=== PATIENT | female | born 1935 | race Caucasian/White ===

== ENCOUNTER 2016-08-24 15:14 | Outpatient (CLI) | payer MEDICARE ==
[2016-08-24 16:09] LABS: #Basophils 0.1 thou/uL (0.0-0.2); #Eosinphils 0.4 thou/uL (0.0-0.7); #Monocytes 0.7 thou/uL (0.11-0.59); #Neutrophils 4.5 thou/uL (1.40-6.50); %Basophils 1.2 % (0.0-1.0); %Eosinophils 5.4 % (0.0-10.0); %Lymphocytes 25.9 % (21.0-51.0); %Monocytes 9.3 % (0.0-10.0); Hematocrit 45.3 % (36.0-47.0); Mean Platelet Volume 5.3 fL (7.4-10.4); Red Blood Cell (RBC) Count 4.92 mill/uL (4.20-5.40); White Blood Cell (WBC) Count 7.7 thou/uL (4.8-10.8)
[2016-08-24 16:36] LABS: ALT (SGPT) 14 U/L (0-55); AST (SGOT) 20 U/L (5-34); Alkaline Phosphatase 88 U/L (40-150); Anion Gap 17 mmol/L (10-20); BUN (Urea Nitrogen) 31 mg/dL (9.8-20.1); Bilirubin, Direct 0.2 mg/dL (0.1-0.3); Bilirubin, Total 0.6 mg/dL (0.2-1.2); Calc. Creatinine Clearance 0 mL/min (70-130); Calcium 9.6 mg/dL (7.8-10.44); Carbon Dioxide 22 mmol/L (23-31); Chloride 105 mmol/L (98-107); Estimated GFR-MDRD 40; LDL Cholesterol, Calculated 91 mg/dL; Protein, Total 6.8 g/dL (5.8-8.1)
[2016-08-24 16:37] LABS: Hemoglobin A1c 5.9 % (4.0-6.0)
== END 2016-08-24 15:15 | disposition home or self-care (01) ==
LOC: NAVSJIPCSP 15:14
PROVIDERS: ATTEND Family Medicine
DX: I10 Essential (primary) hypertension (principal); E11.9 Type 2 diabetes mellitus without complications; E78.00 Pure hypercholesterolemia, unspecified; E03.9 Hypothyroidism, unspecified; R00.0 Tachycardia, unspecified; E27.9 Disorder of adrenal gland, unspecified; Z79.899 Other long term (current) drug therapy; K64.9 Unspecified hemorrhoids; J30.9 Allergic rhinitis, unspecified
CPT/HCPCS: 36415; 80048; 80061; 80076; 83036; 84443; 85025

== ENCOUNTER 2016-12-29 09:47 | Outpatient (CLI) | payer MEDICARE ==
[2016-12-29 12:53] LABS: #Basophils 0.1 thou/uL (0.0-0.2); #Eosinphils 0.5 thou/uL (0.0-0.7); #Lymphocytes 2.1 thou/uL (1.20-3.40); #Monocytes 0.7 thou/uL (0.11-0.59); #Neutrophils 6.2 thou/uL (1.40-6.50); %Basophils 0.9 % (0.0-1.0); %Eosinophils 5.2 % (0.0-10.0); %Lymphocytes 22.2 % (21.0-51.0); %Monocytes 7.6 % (0.0-10.0); %Neutrophils 64.1 % (42.0-75.0); Hemoglobin 13.8 g/dL (12.0-16.0); Mean Corpuscular HGB CONC 31.4 g/dL (32.0-36.0); Mean Corpuscular Hemoglobin 27.7 pg (27.0-31.0); Mean Corpuscular Volume 88.2 fl (81.0-99.0); Mean Platelet Volume 5.6 fL (7.4-10.4); Platelet Count 329 thou/uL (130-400); RBC Distribution Width 13.7 % (11.5-14.5); Red Blood Cell (RBC) Count 4.96 mill/uL (4.20-5.40); White Blood Cell (WBC) Count 9.6 thou/uL (4.8-10.8)
[2016-12-29 13:21] LABS: ALT (SGPT) 13 U/L (8-55); AST (SGOT) 17 U/L (5-34); Alkaline Phosphatase 85 U/L (40-150); Anion Gap 17 mmol/L (10-20); BUN (Urea Nitrogen) 24 mg/dL (9.8-20.1); Bilirubin, Direct 0.2 mg/dL (0.1-0.3); Bilirubin, Total 0.7 mg/dL (0.2-1.2); Calc. Creatinine Clearance 0 mL/min (70-130); Calcium 9.6 mg/dL (7.8-10.44); Carbon Dioxide 23 mmol/L (23-31); Cardiac Risk 3.6 (Less than 4.5); Chloride 104 mmol/L (98-107); Cholesterol 163 mg/dl (< 200 Desired); Estimated GFR-MDRD 40; Glucose 100 mg/dL (83-110); HDL Cholesterol 45 mg/dL (>60 Neg Risk); LDL Cholesterol, Calculated 84 mg/dL; Potassium 4.6 mmol/L (3.5-5.1); Protein, Total 7.3 g/dL (6.0-8.3); Sodium 139 mmol/L (136-145); Triglycerides 169 mg/dL (Less than 150)
[2016-12-29 14:15] LABS: Hemoglobin A1c 6.1 % (4.0-6.0)
== END 2016-12-29 09:48 | disposition home or self-care (01) ==
LOC: NAVSJIPCSP 09:47
PROVIDERS: ATTEND Family Medicine
DX: I10 Essential (primary) hypertension (principal); E11.9 Type 2 diabetes mellitus without complications; M17.9 Osteoarthritis of knee, unspecified; E03.9 Hypothyroidism, unspecified; E78.00 Pure hypercholesterolemia, unspecified; R00.0 Tachycardia, unspecified; E27.9 Disorder of adrenal gland, unspecified; K64.9 Unspecified hemorrhoids; J30.9 Allergic rhinitis, unspecified; Z79.899 Other long term (current) drug therapy
CPT/HCPCS: 36415; 80048; 80061; 80076; 83036; 84443; 85025

== ENCOUNTER 2017-05-16 08:57 | Outpatient (CLI) | payer MEDICARE ==
[2017-05-16 12:29] LABS: #Basophils 0.1 thou/uL (0.0-0.2); #Eosinphils 0.6 thou/uL (0.0-0.7); #Lymphocytes 2.1 thou/uL (1.20-3.40); #Monocytes 0.7 thou/uL (0.11-0.59); #Neutrophils 5.5 thou/uL (1.40-6.50); %Basophils 1.2 % (0.0-1.0); %Eosinophils 6.9 % (0.0-10.0); %Lymphocytes 22.9 % (21.0-51.0); %Monocytes 7.9 % (0.0-10.0); %Neutrophils 61.1 % (42.0-75.0); Mean Corpuscular HGB CONC 31.2 g/dL (32.0-36.0); Mean Corpuscular Hemoglobin 27.7 pg (27.0-31.0); Mean Platelet Volume 5.5 fL (7.4-10.4); Platelet Count 346 thou/uL (130-400); RBC Distribution Width 13.4 % (11.5-14.5); Red Blood Cell (RBC) Count 5.05 mill/uL (4.20-5.40); White Blood Cell (WBC) Count 8.9 thou/uL (4.8-10.8)
[2017-05-16 12:53] LABS: ALT (SGPT) 16 U/L (8-55); AST (SGOT) 17 U/L (5-34); Albumin 4.2 g/dL (3.4-4.8); Alkaline Phosphatase 90 U/L (40-150); Anion Gap 19 mmol/L (10-20); BUN (Urea Nitrogen) 31 mg/dL (9.8-20.1); Bilirubin, Direct 0.2 mg/dL (0.1-0.3); Bilirubin, Total 0.5 mg/dL (0.2-1.2); Calc. Creatinine Clearance 0 mL/min (70-130); Calcium 9.8 mg/dL (7.8-10.44); Carbon Dioxide 20 mmol/L (23-31); Cardiac Risk 3.5 (Less than 4.5); Chloride 106 mmol/L (98-107); Cholesterol 167 mg/dl (< 200 Desired); Estimated GFR-MDRD 39; Glucose 108 mg/dL (83-110); HDL Cholesterol 48 mg/dL (>60 Neg Risk); LDL Cholesterol, Calculated 90 mg/dL; Potassium 4.2 mmol/L (3.5-5.1); Protein, Total 7.1 g/dL (6.0-8.3); Sodium 141 mmol/L (136-145); Triglycerides 146 mg/dL (Less than 150)
== END 2017-05-16 08:58 | disposition home or self-care (01) ==
LOC: NAVSJIPCSP 08:57
PROVIDERS: ATTEND Family Medicine
DX: E11.9 Type 2 diabetes mellitus without complications (principal); E03.9 Hypothyroidism, unspecified; I10 Essential (primary) hypertension; M17.9 Osteoarthritis of knee, unspecified; R00.0 Tachycardia, unspecified; E27.9 Disorder of adrenal gland, unspecified; K64.9 Unspecified hemorrhoids; J30.9 Allergic rhinitis, unspecified; Z79.899 Other long term (current) drug therapy
CPT/HCPCS: 36415; 80048; 80061; 80076; 83036; 84443; 85025

== ENCOUNTER 2018-10-02 06:36 | Emergency (ER) | payer MEDICARE | END 2018-10-02 07:26 | disposition home or self-care (01) | LOC: NAV ERS 06:36 | DX: R09.81 Nasal congestion (principal); G47.00 Insomnia, unspecified; I10 Essential (primary) hypertension; E78.5 Hyperlipidemia, unspecified; E11.9 Type 2 diabetes mellitus without complications; M19.90 Unspecified osteoarthritis, unspecified site; Z79.899 Other long term (current) drug therapy; Z79.82 Long term (current) use of aspirin; Z79.84 Long term (current) use of oral hypoglycemic drugs | CPT/HCPCS: 93005 ==

== ENCOUNTER 2018-11-22 08:44 | Emergency (ER) | payer MEDICARE ==
[2018-11-22] MEDS ORDERED: Acetaminophen 500 MG TAB ONE (09:13)
[2018-11-22] MEDS ORDERED: HYDROcodone/Acetaminophen 5/325 mg Tablet ONE (09:13)
[2018-11-22] MEDS ORDERED: Dexamethasone 20 MG/5 ML VIAL ONE (09:14)
--- NOTE | 2018-11-22 10:05 | RAD ---
RADIOGRAPH RIGHT HIP TWO VIEWS: History: 83-year-old female with right hip pain. FINDINGS: Femoral head contour is maintained. No subcapital osteophytes. Bony hypertrophy of the lateral aspect of acetabulum. No high grade joint space narrowing. No dislocation. No acute fracture identified. At herosclerotic calcification of external iliac artery, superficial femoral artery, and profunda femora l artery. IMPRESSION: 1. No fracture. 2. Osteoarthrosis is mild. POS: [facility]
--- NOTE | 2018-11-22 10:53 | RAD ---
RADIOGRAPH RIGHT KNEE 4 VIEWS: Date: 11/22/18 Time: 0941 hours HISTORY: 83-year-old female with right knee pain. COMPARISON: 06/03/13. FINDINGS: No evidence of acute fracture or dislocation. As in the previous case, there is a suprapatellar region of increased density, but this is larger on the current study. This could either be a moderate sized joint effusion or hemarthrosis. Within this, there is a new finding of an irregularly shaped 2 x 1 cm calcification. 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 There has been interval wor sening of osteophytosis at the medial and lateral compartment since the previous study. At the medial compartment, there is articular surface irregularity and moderate joint space narrowing , with moderate osteophytosis. This osteophytosis has become worse. In the lateral compartment, the previously maintained joint space has become mildly narrowed, and the re is now mild to moderate osteophytosis, which is greater than previously. 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 Osteophytosis at the patellofemoral compartment has also progressed. IMPRESSION: 1. Interval progression of moderate to severe osteoarthrosis since 2013. 2. Suprapatellar joint effusion versus hemarthrosis. 3. Calcification within the suprapatellar region of uncertain etiology. 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 POS: [facility]
== END 2018-11-22 10:28 | disposition home or self-care (01) ==
LOC: NAV ERS 08:44
DX: M17.11 Unilateral primary osteoarthritis, right knee (principal); E11.9 Type 2 diabetes mellitus without complications; E78.5 Hyperlipidemia, unspecified; I10 Essential (primary) hypertension; Z79.899 Other long term (current) drug therapy; Z79.84 Long term (current) use of oral hypoglycemic drugs; Z79.82 Long term (current) use of aspirin
CPT/HCPCS: 96372; J1100

== ENCOUNTER 2018-12-04 07:53 | Emergency (ER) | payer MEDICARE ==
[2018-12-04] MEDS ORDERED: Ketorolac Tromethamine 30 MG/ML VIAL ONE (08:42)
== END 2018-12-04 08:55 | disposition home or self-care (01) ==
LOC: NAV ERS 07:53
DX: M54.41 Lumbago with sciatica, right side (principal); E78.5 Hyperlipidemia, unspecified; I10 Essential (primary) hypertension; M19.90 Unspecified osteoarthritis, unspecified site; E11.9 Type 2 diabetes mellitus without complications; Z79.891 Long term (current) use of opiate analgesic; Z79.82 Long term (current) use of aspirin; Z79.84 Long term (current) use of oral hypoglycemic drugs; W01.0XXA Fall on same level from slipping, tripping and stumbling without subsequent striking against object, initial encounter
CPT/HCPCS: 96372; J1885

== ENCOUNTER 2018-12-06 08:45 | Outpatient (CLI) | payer MEDICARE ==
--- NOTE | 2018-12-06 09:26 | CT ---
CT pelvis noncontrast HISTORY: Fall. Pelvic injury. Hip pain. FINDINGS: No acute fracture or dislocation are apparent. There are prominent degenerative changes of the lower lumbar spine. Posterior disc bulge and prominent circumferential degenerative changes with severe stenosis of the central canal. Diverticula arise from the partially visualized colon with out adjacent formation. Prominent calcification throughout the arterial structures. IMPRESSION: No acute osseous anomalies of the pelvis are demonstrated. Severe degenerative changes lower lumbar spine. Atherosclerosis. Diverticulosis.
== END 2018-12-06 08:46 | disposition home or self-care (01) ==
LOC: NAV CT 08:45
PROVIDERS: ATTEND Family Medicine
DX: R10.2 Pelvic and perineal pain (principal); M47.816 Spondylosis without myelopathy or radiculopathy, lumbar region; I70.90 Unspecified atherosclerosis; K57.30 Diverticulosis of large intestine without perforation or abscess without bleeding
CPT/HCPCS: 72192

== ENCOUNTER 2018-12-08 11:11 | Outpatient (CLI) | payer MEDICARE ==
--- NOTE | 2018-12-08 12:44 | RAD ---
EXAM: XR Shoulder Rt 3 View STANDARD PROVIDED CLINICAL HISTORY: Right shoulder pain after fall. COMPARISON: None available. FINDINGS: There is right acromioclavicular joint osteoarthritis. No fracture or dislocation is seen. There is s uggestion of a calcific density seen at the superior aspect right glenohumeral joint which could be related to calcific peritendinitis. There is questionable calcifications inferior to level the coraco id process, and small intra-articular loose bodies in the region of the subcoracoid bursa is a possibility. No fracture or dislocation is seen. IMPRESSION: 1. No acute osseous abnormalities. 2. Question of intra-articular loose bodies in the region of the subcoracoid bursa. 3. Right acromioclavicular joint osteoarthritis.
== END 2018-12-08 11:12 | disposition home or self-care (01) ==
LOC: NAV RAD 11:11
PROVIDERS: ATTEND Physical Medicine & Rehabilitation
DX: M25.511 Pain in right shoulder (principal); M19.011 Primary osteoarthritis, right shoulder

== ENCOUNTER 2021-03-30 16:00 | Emergency (ER) | payer MEDICARE | END 2021-03-30 17:08 | disposition home or self-care (01) | LOC: NAV ERS 16:00 | DX: I10 Essential (primary) hypertension (principal); E11.9 Type 2 diabetes mellitus without complications; E78.5 Hyperlipidemia, unspecified; E78.00 Pure hypercholesterolemia, unspecified; M19.90 Unspecified osteoarthritis, unspecified site; Z79.84 Long term (current) use of oral hypoglycemic drugs; Z79.899 Other long term (current) drug therapy | CPT/HCPCS: 99283 ==

== ENCOUNTER 2021-07-07 19:08 | Emergency (ER) | payer MEDICARE ==
[2021-07-07 20:15] LABS: #Basophils 0.1 thou/uL (0.0-0.2); #Eosinphils 0.5 thou/uL (0.0-0.7); #Monocytes 0.8 thou/uL (0.11-0.59); #Neutrophils 7.2 thou/uL (1.40-6.50); %Basophils 1.2 % (0.0-1.0); %Eosinophils 4.8 % (0.0-10.0); %Lymphocytes 18.6 % (21.0-51.0); %Monocytes 7.5 % (0.0-10.0); Mean Corpuscular HGB CONC 30.8 g/dL (32.0-36.0); Mean Corpuscular Hemoglobin 27.9 pg (27.0-31.0); Mean Corpuscular Volume 90.5 fL (78.0-98.0); Platelet Count 330 thou/uL (130-400); RBC Distribution Width 14.2 % (11.5-14.5); Red Blood Cell (RBC) Count 4.67 mill/uL (4.20-5.40); White Blood Cell (WBC) Count 10.5 thou/uL (4.8-10.8)
[2021-07-07] MEDS ORDERED: Sodium Chloride 0.9% 1,000 ML ONE (20:23)
[2021-07-07 20:27] LABS: ALT (SGPT) 15 U/L (8-55); AST (SGOT) 22 U/L (5-34); Albumin 3.7 g/dL (3.4-4.8); Alkaline Phosphatase 84 U/L (40-110); Anion Gap 15 mmol/L (10-20); BUN (Urea Nitrogen) 29 mg/dL (9.8-20.1); Bilirubin, Total 0.4 mg/dL (0.2-1.2); Calc. Creatinine Clearance 0 mL/min (70-130); Calcium 9.7 mg/dL (7.8-10.44); Carbon Dioxide 21 mmol/L (23-31); Chloride 102 mmol/L (98-107); Globulin 3.4 g/dL (2.4-3.5); Glucose 122 mg/dL (83-110); Potassium 4.2 mmol/L (3.5-5.1); Protein, Total 7.1 g/dL (5.8-8.1); Sodium 134 mmol/L (136-145)
[2021-07-07 20:41] LABS: CK (CPK) 36 U/L (29-168); Magnesium 1.7 mg/dL (1.6-2.6)
== END 2021-07-07 21:55 | disposition home or self-care (01) ==
LOC: NAV ERS 19:08
DX: I10 Essential (primary) hypertension (principal); E86.0 Dehydration; E11.9 Type 2 diabetes mellitus without complications; E78.5 Hyperlipidemia, unspecified; E78.00 Pure hypercholesterolemia, unspecified; Z79.82 Long term (current) use of aspirin; Z79.899 Other long term (current) drug therapy
CPT/HCPCS: 36415; 71045; 80053; 82550; 83605; 83735; 84484; 85025; 87040; 93005; 94760; J7050

== ENCOUNTER 2022-01-08 13:07 | Emergency (ER) | payer MEDICARE | END 2022-01-08 14:01 | disposition home or self-care (01) | LOC: NAV ERS 13:07 | DX: I10 Essential (primary) hypertension (principal); E78.5 Hyperlipidemia, unspecified; E11.9 Type 2 diabetes mellitus without complications; E78.00 Pure hypercholesterolemia, unspecified; M19.90 Unspecified osteoarthritis, unspecified site; Z79.84 Long term (current) use of oral hypoglycemic drugs; Z79.899 Other long term (current) drug therapy | CPT/HCPCS: 93005 ==

== ENCOUNTER 2023-08-19 14:17 | Emergency (ER) | payer MEDICARE | END 2023-08-19 17:01 | disposition home or self-care (01) | LOC: NAV ERS 14:17 | DX: R21 Rash and other nonspecific skin eruption (principal); E11.9 Type 2 diabetes mellitus without complications; I10 Essential (primary) hypertension; E78.00 Pure hypercholesterolemia, unspecified; Z79.84 Long term (current) use of oral hypoglycemic drugs; Z79.899 Other long term (current) drug therapy | CPT/HCPCS: 93005 ==